=== PATIENT | female | born 2000 | race African-American/Black ===

== ENCOUNTER 2018-01-09 23:11 | Emergency (ER) | payer OTHER ==
[~2018-01-09] VITALS: Ht 162.6 cm; Wt 66.2 kg
[2018-01-09 23:29] VITALS: Ht 162.6 cm; Wt 66.2 kg
[2018-01-10 01:02] VITALS: BP 124/74
== END 2018-01-10 01:02 | disposition short-term general hospital (02) ==
LOC: ED 23:11
DX: O60.03 Preterm labor without delivery, third trimester (principal); Z3A.34 34 weeks gestation of pregnancy

== ENCOUNTER 2019-04-24 22:23 | Emergency (ER) | payer OTHER ==
[~2019-04-24] VITALS: Ht 157.5 cm; Wt 76.4 kg
[2019-04-24 22:38] VITALS: Ht 157.5 cm; Wt 76.4 kg
[2019-04-25 02:20] VITALS: BP 108/58
== END 2019-04-25 02:20 | disposition home or self-care (01) ==
LOC: ED 22:23
DX: S93.402A Sprain of unspecified ligament of left ankle, initial encounter (principal); R68.83 Chills (without fever); Z91.018 Allergy to other foods; Z91.010 Allergy to peanuts; X58.XXXA Exposure to other specified factors, initial encounter; Y93.89 Activity, other specified; Y92.89 Other specified places as the place of occurrence of the external cause; Y99.8 Other external cause status; J45.909 Unspecified asthma, uncomplicated
CPT/HCPCS: J1885; Q0092

== ENCOUNTER 2019-04-26 02:00 | Inpatient (IN) | payer OTHER ==
[~2019-04-26] VITALS: Ht 157.5 cm; Wt 75.8 kg
[2019-04-26 02:21] VITALS: Ht 157.5 cm; Wt 75.8 kg
--- NOTE | 2019-04-26 02:37 | NUR ---
PT BIB BY MOM C/O NAUSEA, VOMITING YELLOW EMESIS, AND BODY CHILLS SINCE THIS MORNING. PT WAS SEEN HERE YESTERDAY FOR FLU-LIKE SYMPTOMS AND "A SWOLLEN ANKLE." NO VOMITING NOTED AT THIS TIME. PT REPORTS PAIN LEVEL 6/10. PT ALSO C/O EPIGASTRIC PAIN DUE TO VOMITING. PT IS AAOX4, NO SIGNS OF DISTRESS, RESP E/U. PT PLACED ON MONITOR. WILL CONT TO MONITOR. AWAITING MSE BY .
[2019-04-26 03:39] LABS: PLATELET COUNT 194 x10^3mcL (130-400)
--- NOTE | 2019-04-26 03:47 | NUR ---
XRAY AT THE BEDSIDE.
[2019-04-26 03:51] LABS: BAND NEUTROPHIL 10 % (0-10); MONOCYTE 1 % (0-7); SEGMENTED NEUTROPHILS 88 % (37-75)
[2019-04-26 03:52] LABS: PLATELET MORPHOLOGY PLATELETS NORMAL; rbc morphology (normal/abnorm) NORMAL (NORMAL)
[2019-04-26 04:01] LABS: BILIRUBIN TOTAL 1.34 mg/dL (0.20-1.00); CALCIUM 8.4 mg/dL (8.5-10.1); CARBON DIOXIDE 17.2 mmol/L (21-32); CREATININE SERUM 1.7 mg/dL (0.6-1.0); TOTAL PROTEIN, SERUM 7.2 g/dL (6.4-8.2)
[2019-04-26 04:05] LABS: ALBUMIN 3.1 g/dL (3.4-5.0); POTASSIUM SERUM 2.5 mmol/L (3.5-5.1)
--- NOTE | 2019-04-26 04:10 | NUR ---
PT AMBULATED TO RESTROOM WITH A STEADY GAIT.
--- NOTE | 2019-04-26 04:22 | NUR ---
PT AMBULATED BACK TO BED FRMO RESTROOM WITH A STEADY GAIT WITHOUT INCIDIENT.
--- NOTE | 2019-04-26 04:35 | NUR ---
U/S TECH AT BEDSIDE PERFORMING USTO PATIENT.
--- NOTE | 2019-04-26 04:40 | NUR ---
PT IN POSITON OF COMFORT, FLUIDS INFUSING NO PROB. PT IS AAOX4, NO SIGNS OF DISTRESS NOTED, RESP E/U, DENIES ANY NAUSEA AT THIS TIME. PT ON MONITOR. WILL CONT TO MONITOR. MOM AT THE BEDSIDE.
[2019-04-26 05:46] LABS: CHOLESTEROL/HDL RATIO 3.5; MAGNESIUM 1.3 mg/dL (1.8-2.4); PHOSPHOROUS 2.1 mg/dL (2.5-4.9)
--- NOTE | 2019-04-26 05:49 | NUR ---
GAVE REPORT TO MONTEZ ALEXANDRA ON [facility] WHO WILL RESUME FURTHER CARE OF THIS PATIENT
[2019-04-26 05:51] LABS: UA SPECIFIC GRAVITY <=1.005 (1.005-1.035); microscopic required? YES; urine erythrocyte 3+ (NEGATIVE)
[2019-04-26 06:00] LABS: AMPHETAMINE QUAL UR NONE DETECTED (See below)
--- NOTE | 2019-04-26 06:47 | NUR ---
Received from ED via [employer]. Alert and oriented x4. No respiratory distress noted on room air. Denies pain at this time. Kept comfortable. IVF started NS @100ml/hr. Call light within reach.
[2019-04-26 07:15] VITALS: BP 100/60
--- NOTE | 2019-04-26 07:15 | NUR ---
RECEIVED PT. IN BED A/A/O X4. NO SOB, NO N/V NOTED. PT. DENIES ANY PAIN AT THIS TIME. IV SITE NOTED TO L AC. SKIN INTACT. NO EDEMA NOTED. B/P= 100/60, P= 102, R.R.= 16, T= 98.5, O2 SAT.= 97% (RA). BED IN LOW POS., CALL LIGHT WITHIN REACH. SIDE RAILS UP X3.
[2019-04-26 08:50] VITALS: BP 85/40
--- NOTE | 2019-04-26 08:50 | NUR ---
B/P= 85/40, MAP= 55, P= 104. PT. IS ASYMPTOMATIC. DR. WOOD WAS MADE AWARE OF THE ABOVE B/P. ORDER TO GIVE 1L NS BOLUS RECEIVED.
[2019-04-26 09:55] VITALS: BP 103/65
[2019-04-26 10:00] LABS: FREE T4 1.32 ng/dL (0.76-1.46); FREE THYROXINE INDEX 3.2 ug/dL (1.4-4.5); T4(THYROXINE) 10.1 ug/dL (4.7-13.3)
[2019-04-26 11:11] VITALS: BP 100/60
--- NOTE | 2019-04-26 13:58 | NUR ---
REPORTED K LEVEL (2.7) TO DR. WOOD. DR. WOOD SAID TO CALL LAB AGAIN TO REDRAW THE BLOOD TO CHECK THE POTASSIUM LEVEL SINCE THE EARLIER AM BLOOD DRAW (AT 03:25 AM) WAS USED TO CHECK THE CURRENT POTASSIUM LEVEL ORDERED AT 1329. LAB. TECH. WAS NOTIFIED REGARDING THE RE-DRAW OF BLOOD.
--- NOTE | 2019-04-26 16:10 | NUR ---
NASAL SWAB OBTAINED AND SENT TO LAB FOR MRSA NARES SCREENING
[2019-04-26 16:30] LABS: CARBON DIOXIDE 17.1 mmol/L (21-32); POTASSIUM SERUM 2.9 mmol/L (3.5-5.1)
[2019-04-26 16:31] LABS: CALCIUM 7.4 mg/dL (8.5-10.1); CREATININE SERUM 1.5 mg/dL (0.6-1.0)
--- NOTE | 2019-04-26 16:33 | NUR ---
REPEATED K LEVEL = 2.9. DR. WOOD WAS PAGED.
[2019-04-26 17:38] VITALS: BP 103/47
--- NOTE | 2019-04-26 18:20 | NUR ---
RECEIVED CRITICAL BLOOD CX RESULTS GRAM STAIN + GRAM - RODS. DR. WOOD MADE AWARE. NO ORDERS AT THIS TIME.
--- NOTE | 2019-04-26 19:30 | NUR ---
RECEIVED PT IN BED AWAKE, ALERT,ORIENTED . PT'S AUNT AT BEDSIDE VISITING. PT ON ROOM AIR AND NO SOB NOTED. BOWEL SOUNDS ACTIVE. SHE HAS NO C/O PAIN AT THIS TIME. PT WAITING FOR CT SCAN TO BE DONE. IV SITE TO [facility] INTACT AND PATENT. CALL LIGHT W/IN REACH.
--- NOTE | 2019-04-26 19:35 | NUR ---
REMAINS IN STABLE CONDITION AT THIS TIME. WILL CONTINUE TO MONITOR.
--- NOTE | 2019-04-26 20:38 | NUR ---
PT C/O RT FLANK PAIN 05/28. NORCO 7.5/325 MG PO GIVEN.
--- NOTE | 2019-04-26 21:33 | NUR ---
PT TAKEN DOWN FOR CT SCAN.
[2019-04-26 22:13] VITALS: BP 136/99
--- NOTE | 2019-04-26 23:00 | NUR ---
INFORMED DR. DOLAN REGARDING RESULT OF BLOOD CULTURE.
--- NOTE | 2019-04-27 05:19 | NUR ---
PT SLEPT THROUGH THE NIGHT. SHE WAS MEDICATED FOR PAIN X1. NO C/O N/V. PT WAS CALM AND COOPERATIVE W/ CARE. IVF NS INFUSING AT 125 CC/HR VIA [facility]. ALL NEEDS ATTENDED TO.
--- NOTE | 2019-04-27 06:14 | NUR ---
PT MEDICATED W/ TYLENOL 650 MG PO FOR XFFU=469.0 .
[2019-04-27 06:31] VITALS: BP 99/48
[2019-04-27 06:45] LABS: BILIRUBIN TOTAL 1.1 mg/dL (0.20-1.00); CALCIUM 7.4 mg/dL (8.5-10.1); CARBON DIOXIDE 21.2 mmol/L (21-32); CREATININE SERUM 1.7 mg/dL (0.6-1.0); MAGNESIUM 2.4 mg/dL (1.8-2.4); PHOSPHOROUS 1.7 mg/dL (2.5-4.9); POTASSIUM SERUM 3.4 mmol/L (3.5-5.1)
[2019-04-27 06:47] LABS: ALBUMIN 2.2 g/dL (3.4-5.0); TOTAL PROTEIN, SERUM 5.8 g/dL (6.4-8.2)
[2019-04-27 06:53] LABS: PLATELET COUNT 156 x10^3mcL (130-400)
--- NOTE | 2019-04-27 06:53 | NUR ---
IVF RATE CHANGED TO 140 CC/HR ORDERED.
[2019-04-27 06:54] LABS: RED CELL DISTRIBUTION WIDTH 14.6 % (11.5-14.5)
--- NOTE | 2019-04-27 08:00 | NUR ---
RECEIVED PATIENT ALERT AND ORIENTED TIMES FOUR. PATIEN WITH DISTENTED ABDOMEN AND NOTED WITH KIDNEY STONE AND TO STRT FLOWMAX TODAY. PATIENT WAS ADVISEND OF PLAN OF CARE AND THAT SHE WILL NEED TO URINATE IN A HAT OR [facility] WILL STRAIN THE URINE FOR A STONE. PATIENT AHD NO ACUTE PAIN AT THIS JEROMY AND RECEIVED TYLENOL OVER NIGHT FOR FEVER. PATIENT HAS VITAL AT THIS TIME AT 99.7, 113, 18, 99/48, 94% ON ROOM AIR. PATIENT AHS 2MM STONE IN THE RIGHT URETER AND HAS SOME GALLBLADDER THICKENING BUT NO STONE REPORTED AT THIST JEROMY PATIEN TAHS NOTED LABS OF POTASSIUM OF 3.4 AND THE CHLORIDE OF 108, WBC AT 15.4, AND THE AST AT 58 AND H ANDH OF 10.1/33. PATIENT HAS BEEN ON ROCEPHIN AND NO ADVERSE REACTION NOTED. PATIENT AHS HSITORY OF ASTHMA AND SOME RALES HEARD BU NO COUGH OR WHEEZING AT THIS TIME. PATIENT HAS PULSES PALPABLE TO ALL EXTREMITIES AND TOLERATE DAMBULATION.
[2019-04-27 09:16] VITALS: BP 93/40
--- NOTE | 2019-04-27 10:25 | NUR ---
PATIENT SEEN BY THE RESIDENTS AND PLAN OF CARE AND TO SEE A SURGEON FOR POSSIBLE CHOLECYSTITIS. PATIENT IS AWARE.
[2019-04-27 10:26] LABS: BAND NEUTROPHIL 22 % (0-10); BASOPHIL 0 % (0-2); MONOCYTE 5 % (0-7); SEGMENTED NEUTROPHILS 66 % (37-75)
[2019-04-27 10:27] LABS: PLATELET MORPHOLOGY PLATELETS NORMAL; burr cell (echinocyte) 1+; rbc morphology (normal/abnorm) ABNORMAL (NORMAL)
--- NOTE | 2019-04-27 10:55 | NUR ---
ADVISED PATIENT NOT TO EAT OR DRINK FOR TEST AT 2PM TODAY OF US OF THE GALLBLADDER.
--- NOTE | 2019-04-27 12:58 | NUR ---
APPEARS THERE IS WENDI RED RESIDUE AND A SMALL STONE WHEN STRAINED THE URINE. WILL SEND TO THE LAB FOR ANALYSIS INDICATED. PATIENT DENIES PAIN AT THIST JEROMY AND STAT ES SHE FEELS RELIEF. WILL CONTINUE TO MONITOR.
--- NOTE | 2019-04-27 16:22 | NUR ---
PATIENT GIVEN NORCO ORDERED AND WILL MONITOR FOR EFFECTIVENESS. THE ULTRASOUND OF THE GALLBLADDER IS SHOWING NO STONES AT THIS TIME. PATIENT HAD PASSED A STONE AND SEDIMENT. THE LAB THE STONE WAS SENT FOR ANALYSIS.
[2019-04-27 17:59] VITALS: BP 90/50
--- NOTE | 2019-04-27 19:15 | NUR ---
RECEIVED PT FROM DAY SHIFT RN. PT IS CURRENTLY RESTING IN BED. AA&O X4 AND ABLE TO FOLLOW COMMANDS. PT DENIES CHEST PAIN OR SHORTNESS OF BREATH AT THIS TIME ON ROOM AIR. THERE ARE NO USE OF ACCESSORY MUSCLES OR LABORED BREATHING ON ASSESSMENT. PT STATED THAT SHE FEELS LESS PAIN WITH URINATION AND THAT SHE HAD JUST VOIDED A FEW MINUTES PRIOR TO ASSESSMENT. LAC IV IS CLEAN DRY PATENT WITH NS RUNNIONG AT 140 ML/HR. PT DENIES ANY PAIN AT THIS TIME AND STATED SHE FEELS MUCH BETTER TODAY. SAFETY MEASURES ARE IN PLACE. CALL LIGHT IS WITHIN REACH. WILL CONTINUE TO MONITOR.
[2019-04-27 20:46] VITALS: BP 101/49
--- NOTE | 2019-04-27 20:48 | NUR ---
PT TEMPERATURE AT THIS TIME IS 101.4. WILL MEDICATE WITH TYLENOL AND APPLY ICE PACKS FOR COOLING MEASURES. WILL REASSESS TEMP.
--- NOTE | 2019-04-27 21:57 | NUR ---
RECHECKED PT TEMP: 98.9 WILL CONTINUE TO MONITOR.
--- NOTE | 2019-04-28 04:31 | NUR ---
PT RESTING IN BED AWAKE AT THIS TIME. STATES SHE FEELS OKAY. DENIES ANY CHEST PAIN SHORTNESS OF BREATH. NO USE OF ACCESSORY MUSCLES NO LABORED BREATHING. PT DOES NOT APPEAR TO BE IN DISTRESS.
[2019-04-28 05:10] VITALS: BP 118/48
[2019-04-28 06:21] LABS: PLATELET COUNT 171 x10^3mcL (130-400)
--- NOTE | 2019-04-28 06:31 | NUR ---
PT TEMP 101.4 ADMINISTERING TYLENOL. WILL REASSESS
[2019-04-28 06:46] LABS: ALKALINE PHOSPHATASE 103 U/L (46-116); ALT/SGPT 29 U/L (14-59); AST/SGOT 28 U/L (15-37); BILIRUBIN TOTAL 0.98 mg/dL (0.20-1.00); CARBON DIOXIDE 18.6 mmol/L (21-32); CHLORIDE SERUM 107 mmol/L (98-107); CREATININE SERUM 1.2 mg/dL (0.6-1.0); GFR1 > 60 mL/min; GLUCOSE SERUM 104 mg/dL (74-106); MAGNESIUM 1.9 mg/dL (1.8-2.4); PHOSPHOROUS 1.5 mg/dL (2.5-4.9); POTASSIUM SERUM 3.1 mmol/L (3.5-5.1); SODIUM SERUM 139 mmol/L (136-145)
--- NOTE | 2019-04-28 07:05 | NUR ---
REPORT RECEIVED. PATIENT IN BED AND NOT IN ANY DISTRESS. NS AT 140CC.HR INFUSING LAC. DENIES ANY PAIN. INSTRUCTED TO CALL RN FOR ASSIST.
--- NOTE | 2019-04-28 07:17 | NUR ---
TEMP 101.2 AT THIS TIME ICE PACKS GIVEN. ENDORSED TO DAY SHIFT RN TO REASSESS TEMPERATURE. PT DENIES ANY DISTRESS. NO SOB ON ASSESSMENT. PT DENIES PAIN OR CHEST PAIN.
--- NOTE | 2019-04-28 08:43 | NUR ---
MILD NAUSEA. ZOFRAN 4MG IVP GIVEN. RUQ PAIN 5/10 BUT STATED " I WILL NEED PAIN MEDICINE IF IT IS 8/10".
[2019-04-28 09:50] VITALS: BP 116/55
--- NOTE | 2019-04-28 11:30 | NUR ---
IN BED. STATES HER NAUSEA IS BETTER. DENIES ANY PAIN. CALL COBB WITHIN REACH.
[2019-04-28 13:49] LABS: ATYPICAL LYMPH 2 %; BAND NEUTROPHIL 9 % (0-10); BASOPHIL 0 % (0-2); MONOCYTE 3 % (0-7); SEGMENTED NEUTROPHILS 76 % (37-75)
[2019-04-28 13:50] LABS: PLATELET MORPHOLOGY PLATELETS DECREASED; rbc morphology (normal/abnorm) ABNORMAL (NORMAL)
--- NOTE | 2019-04-28 14:39 | NUR ---
FAMILY MEMBER VISITING PATIENT AT THIS TIME.
--- NOTE | 2019-04-28 15:54 | NUR ---
DR. MANN VISITED AND ASSESSED PATIENT.
[2019-04-28 17:20] VITALS: BP 113/51
--- NOTE | 2019-04-28 17:40 | NUR ---
TEMP. 102.7. COOLING MEASURES DONE. TYLENOL 650 PO GIVEN. LEVOQUIN IN PROGRESS
--- NOTE | 2019-04-28 18:48 | NUR ---
TEMP NOW 101.4 AFTER TYLENOL. CONTINOUS COOLING MEASURES PROVIDED.
--- NOTE | 2019-04-28 19:20 | NUR ---
RECEIVED PT LAYING IN BED, NO ACUTE DISTRESS OBSERVED, DENIES PAIN OR DISCOMFORT AT THIS TIME. AA/OX4. MED-SURG, NO TELE, NO CP. PULSES PRESENT AND EQUAL THROUGHOUT, NO EDEMA. BREATHING ON RA, EVEN AND UNLABORED, DENIES SOB OR DYSPNEA, LUNGS CTA, O2 SAT 94% COOLING MEASURES REMAIN IN PLACE FOR INCREASED TEMP, EDUCATED PT TO KEEP ICE PACKS ON, AC ON, AND NO BLANKETS AT THIS TIME. ABD ROUND AND SOFT WITH ACTIVE BOWEL SOUNDS, C/O INT NAUSEA, NONE AT THIS TIME. VOIDS URINE, UCX (+) E. COLI, STRIANING URINE. AMBULATORY AND ABLE TO REPOSITION SELF IN BED. IV TO LAC IN PLACE, DRY, PATENT, INTACT AND INFUSING IVF WELL, NO PAIN, REDNESS OR SWELLING NOTED. COMFORT AND SAFETY MEASURES IN PLACE. ALL NEEDS ASSESSED AND ATTENDED TO. CALL LIGHT WITHIN REACH. WILL CONTINUE TO MONITOR
--- NOTE | 2019-04-28 19:26 | NUR ---
REPORT GIVEN TO IBRAHIMA HEREDIA. FRESH COOLING PACKS APPLIED TO PATIENT.
[2019-04-28 20:38] VITALS: BP 116/65
--- NOTE | 2019-04-29 00:43 | NUR ---
PT'S K LEVEL IN AM 3.1, DR. DOLAN MADE AWARE, NO NEW ORDERS
--- NOTE | 2019-04-29 01:01 | NUR ---
PT VOMITTED INTO EMESIS BAG. MEDICATED WITH PRN ZOFRAN PER EMAR.
--- NOTE | 2019-04-29 05:24 | NUR ---
PT'S TEMP THIS MORNING, 102.2 ORAL. COOLING MEASURES INITIATED. BLANKETS OFF. ICE PACKS IN PLACE. AC ON. ATTEMPTED TO MEDICATE PT WITH PRN TYLENOL BUT SHE REFUSED, STATES IT HURTS WHEN ATTEMPTING TO SWALLOW PILLS AND FEARS SHE MAY VOMIT. DR. DOLAN MADE AWARE, WILL ANTICIPATE ORDERS FOR TORADOL IVP. TYLENOL PO WASTED AT [facility]
[2019-04-29 05:42] VITALS: BP 134/52
--- NOTE | 2019-04-29 06:16 | NUR ---
TEMP REASSESSED AT THIS TIME, 100.6 COOLING ME[address]URES REMAIN IN PLACE, DENIES DISCOMFORT AT THIS TIME. PT COMPLIED WITH NURSING CARE THROUGHOUT THE SHIFT. NO ACUTE DISTRESS OBSERVED AT THIS TIME. AROUSABLE TO VERBAL STIMULI. COMFORT AND SAFETY MAINTAINED. ALL NEEDS ASSESSED AND ATTENDED TO. CALL LIGHT WITHIN REACH. WILL CONTINUE TO MONITOR AND ENDORSE CARE TO DAY SHIFT NURSE
[2019-04-29 06:26] LABS: PLATELET COUNT 197 x10^3mcL (130-400)
[2019-04-29 06:50] LABS: CALCIUM 7.9 mg/dL (8.5-10.1); CARBON DIOXIDE 21.7 mmol/L (21-32); CHLORIDE SERUM 107 mmol/L (98-107); CREATININE SERUM 1.1 mg/dL (0.6-1.0); GFR1 > 60 mL/min; GLUCOSE SERUM 91 mg/dL (74-106); MAGNESIUM 1.6 mg/dL (1.8-2.4); PHOSPHOROUS 1.7 mg/dL (2.5-4.9); SODIUM SERUM 141 mmol/L (136-145)
[2019-04-29 06:54] LABS: RED CELL DISTRIBUTION WIDTH 15.4 % (11.5-14.5)
[2019-04-29 06:56] LABS: POTASSIUM SERUM 2.9 mmol/L (3.5-5.1)
--- NOTE | 2019-04-29 08:06 | NUR ---
RECEIVED PATIENT FROM IBRAHIMA HEREDIA. PATIENT IN BED RESTING, USING CELL PHONE. IBRAHIMA HEREDIA STATES PATIENT POTASSIUM IS 2.9 FROM AM LABS, DIALED RESIDENT PHONE WITH NO ANSWER. VM LEFT. CURRENTLY NO SIGNS OF NAUSEA/VOMITTING. CALL LIGHT IN REACH.
[2019-04-29 08:40] VITALS: BP 121/52
--- NOTE | 2019-04-29 10:49 | NUR ---
PATIENT IN BED RESTING, FAMILY AT BEDSIDE. DR WOOD ALREADY IN TO SPEAK WITH PATIENT ABOUT PLAN OF CARE. NO COMPLAINTS AT THIS TIME, CALL LIGHT IN REACH.
[2019-04-29 11:51] LABS: ATYPICAL LYMPH 1 %; BAND NEUTROPHIL 4 % (0-10); MONOCYTE 8 % (0-7); SEGMENTED NEUTROPHILS 73 % (37-75)
[2019-04-29 11:52] LABS: BASOPHIL 0 % (0-2); BLAST 0 % (0); METAMYELOCTE 0 % (0-2); MYELOCYTE 0 % (0-2); PROMYELOCYTE 0 % (0-0); rbc morphology (normal/abnorm) ABNORMAL (NORMAL)
[2019-04-29 11:53] LABS: PLATELET MORPHOLOGY PLATELETS DECREASED
--- NOTE | 2019-04-29 13:06 | NUR ---
PATIENT IN BED. NO COMPLAINTS OF PAIN OR DIZZINESS OR N/V AT THIS TIME. DR WOOD MADE AWARE OF POTASSIUM LEVEL OF 2.9, 20 MEQ KCL RIDER ORDER AND BEGAN INFUSING. CALL LIGHT IN REACH.
[2019-04-29 17:09] VITALS: BP 124/78
--- NOTE | 2019-04-29 18:54 | NUR ---
PATIENT STATES THAT SHE IS EXPERICENING CHEST DISCOMFORT DT HER ASTHMA. NOTIFIED DR DOLAN. PRN BREATHING TREATMENT ORDERED AND ACTIVE. CALL PLACED TO RT FOR TREATMENT. RT STATES POST REPORT THEY WILL ADMINISTER TREATMENT. PATIENT IV SITE PROBLEMATIC, WILL ENDORSE TO ONCOMING NURSE. ORDERED KCL NOT COMPLETE AT SCHEDULED TIME DT TO IV ACCESS. SECOND BAG ORDERED ALSO NOT IN PYXIS, WILL PLACE CALL TO PHARMACY. CALL LIGHT IN REACH, AUNT AT BEDSIDE.
--- NOTE | 2019-04-29 19:10 | NUR ---
RECEIVED PT LAYING IN BED, NO ACUTE DISTRESS OBSERVED, DENIES PAIN OR DISCOMFORT AT THIS TIME. AA/OX4. MED-SURG, NO TELE, NO CP. PULSES PRESENT AND EQUAL THROUGHOUT, NO EDEMA. BREATHING ON RA, EVEN AND UNLABORED, DENIES SOB OR DYSPNEA, LUNGS CTA, O2 SAT 99% COOLING MEASURES IN PLACE. ABD ROUND AND SOFT WITH ACTIVE BOWEL SOUNDS, C/O INTERMITTENT N/V, DENIES ANY AT THIS TIME. VOIDS URINE FREELY, UCX (+) E. COLI, STRIANING URINE FOR STONE. AMBULATORY AND ABLE TO REPOSITION SELF IN BED. IV TO LAC IN PLACE, DRY, PATENT, INTACT AND INFUSING IVF WELL, NO PAIN, REDNESS OR SWELLING NOTED. COMFORT AND SAFETY MEASURES IN PLACE. ALL NEEDS ASSESSED AND ATTENDED TO. CALL LIGHT WITHIN REACH. WILL CONTINUE TO MONITOR
[2019-04-29 19:40] VITALS: BP 128/56
--- NOTE | 2019-04-29 21:06 | NUR ---
PT VOMITED INTO EMESIS BAG. MEDICATED WITH PRN ZOFRAN IVP PER EMAR. EXTRA EMESIS BAGS PROVIDED AND WITHIN REACH.
[2019-04-29 21:22] VITALS: BP 128/56
--- NOTE | 2019-04-30 05:31 | NUR ---
NO SIGNIFICANT CHANGES TO REPORT, PT COMPLIED WITH NURSING CARE THROUGHOUT THE SHIFT WITH NO ACUTE EVENTS OVERNIGHT. NO ACUTE DISTRESS OBSERVED AT THIS TIME, PT LAYING IN BED, BREATHING EVEN AND UNLABORED, AROUSABLE TO VERBAL STIMULI. COMFORT AND SAFETY MEASURES MAINTAINED. ALL NEEDS ASSESSED AND ATTENDED TO. CALL LIGHT WITHIN REACH. WILL CONTINUE TO MONITOR AND ENDORSE CARE TO DAY SHIFT NURSE
[2019-04-30 06:09] LABS: BASOPHIL % 0.3 % (0-2); PLATELET COUNT 252 x10^3mcL (130-400)
[2019-04-30 06:33] LABS: RED CELL DISTRIBUTION WIDTH 15.4 % (11.5-14.5)
[2019-04-30 06:37] VITALS: BP 103/50
[2019-04-30 06:44] LABS: CALCIUM 7.9 mg/dL (8.5-10.1); CHLORIDE SERUM 109 mmol/L (98-107); CREATININE SERUM 1.1 mg/dL (0.6-1.0); GFR1 > 60 mL/min; GLUCOSE SERUM 116 mg/dL (74-106); MAGNESIUM 1.5 mg/dL (1.8-2.4); PHOSPHOROUS 2.5 mg/dL (2.5-4.9); POTASSIUM SERUM 3.2 mmol/L (3.5-5.1); SODIUM SERUM 142 mmol/L (136-145)
--- NOTE | 2019-04-30 08:00 | NUR ---
RECEIVED PATIENT A/A/OX4; CLEAR SPEECH. NO RESP DSITRESS ON RA. DENIED CHEST PAIN. ABD ROUND/SOFT. BOWEL SOUND HYPOACTIVE. PATIENT REFUSED CLEAR LIQUID DIET BREAKFAST. SHE SAID BREAKFAST WOULD CAUSE NAUSEA/VOMITING. VOID VIA BRP. ALL URINE STRAINED. DENIED AB DAPIN. IVF OF NS 100CC/HR. IV SITE TO LAC INTACT. AMBULATORY. CALL LIGHT IN REACH.
--- NOTE | 2019-04-30 08:56 | NUR ---
REPORTED TO DR. NINA Chaves/ PATIENT'S POTASSIUM LEVEL 3.2 AND MAG LEVEL 1.5 VIA [facility].
[2019-04-30 09:37] VITALS: BP 123/57
--- NOTE | 2019-04-30 10:30 | NUR ---
REPORTED TO DR. NINA Chaves/ PATIENT REFUSED ORAL MEDS OF KCL AND MAG-OX.
--- NOTE | 2019-04-30 11:00 | NUR ---
DR. SUNG CAME TO SEE PATIENT. NEW ORDER OF CHANGE IVF TO NS W/ 40 MEQ KCL 80CC/HR CARRIED OUT.
--- NOTE | 2019-04-30 13:30 | NUR ---
BY HELP OF PATIENT'S MOTHER. CRASHED MEDS AND EMBEDED IN CHOCOLATE PUDDING. PATIENT HAD KCL 40 MEQ AND MAG-OX 400MG PO.
[2019-04-30] MEDS ORDERED: LEVOFLOXACIN750 M1 PO (13:59)
[2019-04-30 15:34] VITALS: BP 123/57
[2019-04-30 16:46] VITALS: BP 110/51
--- NOTE | 2019-04-30 17:00 | NUR ---
MAG RIDER 2GM IV GIVEN.
--- NOTE | 2019-04-30 17:33 | NUR ---
D/C TO HOME PER ORDER. INSTRUCTION GIVEN. IV D/C'D. OVER NEEDLE CATH INTACT. CONDITION STABLE.
== END 2019-04-30 17:42 | disposition home or self-care (01) | DRG 720 ==
LOC: ED 02:00 → MU 05:06
PROVIDERS: Emergency Medicine; Internal Medicine; ADMIT Family Medicine
DX: A41.51 Sepsis due to Escherichia coli [E. coli] (principal); N17.0 Acute kidney failure with tubular necrosis; N39.0 Urinary tract infection, site not specified; E44.0 Moderate protein-calorie malnutrition; B96.29 Other Escherichia coli [E. coli] as the cause of diseases classified elsewhere; E87.6 Hypokalemia; N13.2 Hydronephrosis with renal and ureteral calculous obstruction; E83.42 Hypomagnesemia; E83.39 Other disorders of phosphorus metabolism; R74.0 Nonspecific elevation of levels of transaminase and lactic acid dehydrogenase [LDH]; Z68.30 Body mass index [BMI] 30.0-30.9, adult
CPT/HCPCS: 84439; 87804; 94150; G0378; J0696; J1885; J1956; J2405; J3475; J3480; J7030; J7050; J7620; Q0092

== ENCOUNTER 2020-07-01 10:42 | Emergency (ER) | payer OTHER ==
[~2020-07-01] VITALS: Ht 160 cm; Wt 78.5 kg
[~2020-07-01 10:42] MED LIST: LEVOFLOXACIN750 M1 PO
[2020-07-01 11:04] VITALS: Ht 160 cm; Wt 78.5 kg
[2020-07-01 13:07] VITALS: BP 118/52
== END 2020-07-01 13:07 | disposition home or self-care (01) ==
LOC: ED 10:42
DX: S39.012A Strain of muscle, fascia and tendon of lower back, initial encounter (principal); J45.909 Unspecified asthma, uncomplicated; Z91.018 Allergy to other foods; X58.XXXA Exposure to other specified factors, initial encounter; Y93.89 Activity, other specified; Y92.89 Other specified places as the place of occurrence of the external cause; Y99.8 Other external cause status